=== PATIENT | female | born 1985 ===

== ENCOUNTER 2019-04-30 01:18 | Emergency (ER) | payer OTHER ==
[2019-04-30] MEDS ORDERED: 0.9 % SODIUM CHLORIDE 1,000 ML BAG IV ONE (01:40)
[2019-04-30] MEDS ORDERED: MORPHINE SULFATE 5 MG/ML VIAL IVP ONE (01:48)
[2019-04-30 02:25] LABS: URINE APPEARANCE CLEAR; URINE BILIRUBIN NEGATIVE (NEGATIVE); URINE BLOOD NEGATIVE (NEGATIVE); URINE COLOR YELLOW; URINE GLUCOSE (UA) NEGATIVE (NEGATIVE); URINE KETONE NEGATIVE (NEGATIVE); URINE LEUKOCYTE ESTERASE NEGATIVE (NEGATIVE); URINE NITRITE NEGATIVE (NEGATIVE); URINE PROTEIN NEGATIVE (NEGATIVE); URINE UROBILINOGEN 0.2 E.U./dL (0.20 - 1.00)
[2019-04-30 02:28] LABS: HCG,QUALITATIVE URINE NEGATIVE (NEGATIVE)
--- NOTE | 2019-04-30 02:49 | Emergency Department Record ---
History of Present Illness - General Chief Complaint: Syncope Stated Complaint: SYNCOPAL EPISODE Time Seen by Provider: 04/30/19 01:29 Source: Patient Mode of Arrival: Ambulatory Limitations: No limitations - History of Present Illness Initial Comments: pt was coughing very hard when she passed out and fell back hitting her head and r buttocks, r arm on the bed frame and fire place. she was out for a minute or 2. it was witnessed by her . Complaint: Loss of consciousness Onset/Timin -: Minutes(s) Prodromal Symptoms: Lightheaded Duration of Episode: 2 -: Minutes(s) Current Symptoms: Lightheaded Context: Recent illness Treatments Prior to Arrival: None - [place] Coma Scale Eye Response: (4) Open spontaneously Motor Response: (6) Obeys commands Verbal Response: (5) Oriented [place] Total: 15 - Related Data Home Medications Medication Instructions Recorded Confirmed Last Taken Benzonatate [Tessalon Perle] 1 tab PO DAILY PRN 04/30/19 04/30/19 04/30/19 Allergies Allergy/AdvReac Type Severity Reaction Status Date / Time No Known Drug Allergies Allergy Verified 04/30/19 01:32 Travel Screening - Travel/Exposure Within Last 30 Days Have you traveled within the last 30 days?: No - Travel/Exposure Within Last Year Have you traveled outside the [place] in the last year?: No - Additonal Travel Details Have you been exposed to anyone with a communicable illness?: No - Travel Symptoms Symptom Screening: None Review of Systems Reviewed: No additional complaints except as noted below Constitutional: Reports: As per HPI. Denies: Chills, Fever, Malaise, Night sweats, Weakness, Weight change Eyes: Reports: As per HPI. Denies: Eye discharge, Eye pain, Photophobia, Vision change ENT: Reports: As per HPI. Denies: Congestion, Dental pain, Ear pain, Epistaxis, Hearing loss, Throat pain Respiratory: Reports: As per HPI. Denies: Cough, Dyspnea, Hemoptysis, Stridor, Wheezes Cardiovascular: Reports: As per HPI. Denies: Arrhythmia, Chest pain, Dyspnea on exertion, Edema, Murmurs, Orthopnea, Palpitations, Paroxysmal nocturnal dyspnea, Rheumatic Fever, Syncope Endocrine: Reports: As per HPI. Denies: Fatigue, Heat or cold intolerance, Polydipsia, Polyuria Gastrointestinal: Reports: As per HPI. Denies: Abdominal pain, Constipation, Diarrhea, Hematemesis, Hematochezia, Melena, Nausea, Vomiting Genitourinary: Reports: As per HPI. Denies: Abnormal menses, Discharge, Dyspareunia, Dysuria, Frequency, Hematuria, Incontinence, Retention, Urgency Musculoskeletal: Reports: As per HPI. Denies: Arthralgia, Back pain, Gout, Joint swelling, Myalgia, Neck pain Skin: Reports: As per HPI. Denies: Bruising, Change in color, Change in hair/nails, Lesions, Pruritus, Rash Neurological: Reports: As per HPI. Denies: Abnormal gait, Confusion, Headache, Numbness, Paresthesias, Seizure, Tingling, Tremors, Vertigo, Weakness Psychiatric: Reports: As per HPI. Denies: Anxiety, Auditory hallucinations, Depression, Homicidal thoughts, Suicidal thoughts, Visual hallucinations Hematological/Lymphatic: Reports: As per HPI. Denies: Anemia, Blood Clots, Easy bleeding, Easy bruising, Swollen glands Past Medical History - SOCIAL HISTORY Smoking Status: Current every day smoker Alcohol Use: Occasional Drug Use: None - RESPIRATORY Hx Respiratory Disorders: Yes Hx Bronchitis: Yes - CARDIOVASCULAR Hx Cardio Disorders: No - NEURO Hx Neuro Disorders: No - GI Hx GI Disorders: No - Hx Genitourinary Disorders: Yes Hx UTI: Yes - ENDOCRINE Hx Endocrine Disorders: No - MUSCULOSKELETAL Hx Musculoskeletal Disorders: No - PSYCH Hx Psych Problems: No - HEMATOLOGY/ONCOLOGY Hx Hematology/Oncology Disorders: No Family Medical History Any Significant Family History?: No Physical Exam - General General Appearance: Alert, Oriented x3, Cooperative, Mild distress - Head Head exam: Normal inspection Head exam detail: General tenderness - Eye Eye exam: Normal appearance, PERRL, EOMI Pupils: Normal accommodation - ENT ENT exam: Normal exam, Mucous membranes moist, Normal external ear exam, Normal orophraynx, TM's normal bilaterally Ear exam: Normal external inspection. negative: External canal tenderness Nasal Exam: Normal inspection. negative: Discharge, Sinus tenderness Mouth exam: Normal external inspection, Tongue normal Teeth exam: Normal inspection. negative: Dental caries Throat exam: Normal inspection. negative: Tonsillar erythema, Tonsillar exudate - Neck Neck exam: Normal inspection, Full ROM. negative: Tenderness - Respiratory Respiratory exam: Normal lung sounds bilaterally. negative: Respiratory distress - Cardiovascular Cardiovascular Exam: Regular rate, Normal rhythm, Normal heart sounds - GI/Abdominal GI/Abdominal exam: Soft, Normal bowel sounds. negative: Tenderness - Rectal Rectal exam: Deferred - exam: Deferred - Extremities Extremities exam: Normal inspection, Full ROM, Normal capillary refill. negative: Tenderness - Back Back exam: Reports: Full ROM, Tenderness. 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 ] Respiratory 20 Rate Blood Pressure 149/106 Blood Pressure 129/77 [Right Arm] Pulse Ox 98 Medical Decision Making - Lab Data Result diagrams: 04/30/19 04:20 04/30/19 04:20 Lab Results 04/30/19 Range/Units 02:15 Urine Color Yellow Urine Appearance Clear Urine pH 6.0 (5.0-8.0) Ur Specific [place] 1.025 (1.002-1.030) Urine Protein Negative (NEGATIVE) Urine Glucose (UA) Negative (NEGATIVE) Urine Ketones Negative (NEGATIVE) Urine Blood Negative (NEGATIVE) Urine Nitrite Negative (NEGATIVE) Urine Bilirubin Negative (NEGATIVE) Urine Urobilinogen 0.2 (0.20 - 1.00) E.U./dL Ur Leukocyte Esterase Negative (NEGATIVE) Urine HCG, Qual Negative (NEGATIVE) Disposition Disposition: Discharge Clinical Impression: Multiple contusions Syncope Qualifiers: Syncope type: vasovagal syncope Qualified Code(s): R55 - Syncope and collapse Head injury Qualifiers: Encounter type: initial encounter Qualified Code(s): S09.90XA - Unspecified injury of head, initial encounter Disposition: Home, Self-Care Condition: (1) Good Instructions: Syncope (ED), Head Injury (ED), Contusion in Adults (ED) Additional Instructions: follow up with family doctor on thursday. have haltor monitor and echo of heart. sit down if coughing Forms: Patient Portal Access Quality - Quality Measures Quality Measures: Blunt Head Trauma (>2yr) - Sina Coma Scale [place] Coma Scale: [place] Coma Scale Eye Response: (4) Open spontaneously Motor Response: (6) Obeys commands Verbal Response: (5) Oriented [place] Total: 15 - Blunt Head Trauma - Adult Quality Measure: Measure #415: Utilization of CT for Minor Blunt Head Trauma ICD10 Codes Entered: Yes Was CT ordered: Yes Does Patient Have Any of the Following: No Exclusions Patient Presented Within 24 Hours of Injury: Yes Sina Score: [address] for Minor Blunt Head Trauma: < CT Done, Appropriate Indication > [G9529] Additional Inclusion Criteria: Within 24hrs (AND) GCS of 15 (AND) CT ordered. [G9530] Indications For CT: Dangerous Mechanism of Injury, Headache w/Loss of Consciousness - Blood Pressure Screening Does Patient Have Any of the Following: No Blood Pressure Classification: Hypertensive Reading Systolic Measurement: 149 Diastolic Measurement: 106 Screening for High Blood Pressure: < First Hypertensive BP, F/U Documented > [G8950] First Hypertensive Follow-up Interventions: Follow-up with rescreen GT 1 day and LT 4 weeks.
--- NOTE | 2019-04-30 03:30 | RADIOLOGY REPORT ---
EXAMINATION: Pelvis, One or Two Views EXAM DATE: 04/30/2019 3:26 AM TECHNIQUE: AP INDICATION: injury COMPARISON: None ENCOUNTER: Initial FINDINGS: There is no bone or joint abnormality. IMPRESSION: Normal exam. Dictated by: Yudy Norman MD on 04/30/2019 3:27 AM. .
--- NOTE | 2019-04-30 03:32 | RADIOLOGY REPORT ---
EXAMINATION: Thoracic Spine, Two Views EXAM DATE: 04/30/2019 3:26 AM TECHNIQUE: AP and lateral INDICATION: injury COMPARISON: None ENCOUNTER: Initial FINDINGS: No compression deformity or malalignment. Disc spaces are maintained. IMPRESSION: Normal exam. Dictated by: Yudy Norman MD on 04/30/2019 3:28 AM. .
--- NOTE | 2019-04-30 03:32 | CT SCAN REPORT ---
EXAMINATION: CT Head without IV Contrast EXAM DATE: 04/30/2019 3:26 AM TECHNIQUE: Standard protocol CT images of the head were obtained without intravenous contrast. Jaramillo l and sagittal reconstructed images were created. INDICATION: injury COMPARISON: None HAND DOMINANCE: Unknown. ENCOUNTER: Not applicable FINDINGS: 1. There is no intracranial mass, midline shift, extraaxial fluid collection or hemorrhage. 2. The ventricles, sulci and cisterns are normal. 3. There are no suspicious area of altered attenuation. 4. There is no fracture. 5. The visualized aspects of the orbits, paranasal sinuses, and mastoid air cells are normal. IMPRESSION: No acute intracranial abnormalities appreciated Dictated by: Polly Byrne DO on 04/30/2019 3:30 AM. .
--- NOTE | 2019-04-30 03:33 | CT SCAN REPORT ---
EXAMINATION: CT Cervical Spine without IV Contrast EXAM DATE: 04/30/2019 3:26 AM TECHNIQUE: Standard protocol cervical spine CT imaging was performed without intravenous contrast. Co rosana and sagittal images were reconstructed. INDICATION: injury COMPARISON: None ENCOUNTER: Not applicable FINDINGS: There is normal cervical alignment, curvature, vertebral body height, and disc height. Paraspinal soft tissues are unremarkable. There are no significant degenerative changes, disc herniations, central canal stenosis, or foraminal narrowing. Craniocervical junction:Unremarkable. C1-2: Unremarkable. C2-3: Unremarkable. C3-4: Unremarkable. C4-5: Unremarkable. C5-6: Unremarkable. C6-7: Unremarkable. C7-T1: Unremarkable. IMPRESSION: Negative for fracture subluxation or perched facet Dictated by: Polly Byrne DO on 04/30/2019 3:30 AM. .
[2019-04-30 04:38] LABS: BLOOD UREA NITROGEN 13 mg/dL (6-20); CREATININE 0.6 mg/dL (0.5-0.9); EST GLOMERULAR FILTRATION RATE > 60 mL/min
[2019-04-30 04:40] LABS: ABSOLUTE NEUTROPHIL COUNT 5.91; GLUCOSE,RANDOM 114 mg/dL (74-109); HEMATOCRIT 37.1 % (35.0-47.0); HEMOGLOBIN 11.7 gm/dl (11.6-16.0); MEAN CELL VOLUME 85.7 fl (81-97); MEAN CORPUSCULAR HGB CONC 31.5 g/dl (32-36); RED BLOOD COUNT 4.33 M/uL (3.80-5.40); WHITE BLOOD COUNT W/O DIFF 9.8 K/uL (4.2-12.2)
[2019-04-30 04:41] LABS: BASO % 0.3 % (0-6); EOS % 2.3 % (0-6); GRAN % 60.1 % (47-80); MEAN PLATELET VOLUME 8.8 fl (7.4-10.4); MONO % 6.3 % (0-9); PLATELET COUNT 481 K/uL (130-400); RED CELL DISTRIBUTION WIDTH 13.8 % (11.5-14.5)
== END 2019-04-30 05:26 | disposition home or self-care (01) ==
LOC: ER 01:18
DX: S09.90XA Unspecified injury of head, initial encounter (principal); S00.83XA Contusion of other part of head, initial encounter; S30.0XXA Contusion of lower back and pelvis, initial encounter; R55 Syncope and collapse; W01.198A Fall on same level from slipping, tripping and stumbling with subsequent striking against other object, initial encounter; F17.210 Nicotine dependence, cigarettes, uncomplicated
CPT/HCPCS: 70450; 72072; 72125; 72170; 80048; 81003; 81025; 85025; 85379; 93005; 93010; 99284; J7030

== ENCOUNTER 2019-05-30 13:57 | Observation (INO) | payer OTHER ==
[2019-05-30] MEDS ORDERED: ALBUTEROL SULFATE (0.083%) 2.5 MG/3 ML NEB INH ONE ×2 (14:23→15:44)
[2019-05-30] MEDS ORDERED: METHYLPREDNISOLONE PF 125MG/VIAL IVP ONE (14:23)
[2019-05-30] MEDS ORDERED: IPRATROPIUM BR 0.02% NEB (0.5MG) INH ONE (14:23)
[2019-05-30] MEDS ORDERED: IBUPROFEN 600 MG TABLET PO ONE (14:25)
[2019-05-30 14:35] LABS: INFLUENZA A NEGATIVE (NEGATIVE); INFLUENZA B NEGATIVE (NEGATIVE)
--- NOTE | 2019-05-30 14:36 | Emergency Department Record ---
History of Present Illness - General Chief Complaint: Fever Stated Complaint: ZOE,FEVER ,ACHES Time Seen by Provider: 05/30/19 14:22 Source: Patient, Family () Mode of Arrival: Ambulatory Limitations: No limitations - History of Present Illness Initial Comments: Pt with ZOE onset last PM. Fevers at home of 103. Pt with exposure to family with "the flu". Pt is a smoker with hx of hospital admission in the past for respiratory illness with wheeze. There is no hx of asthma. Cough is non productive, + body aches, no vomiting. Denies but is "trying to get ". Last took Motrin 600mg at 7AM. "Allergic to Tylenol as it causes stomach upset". No rash. Onset/Timin -: Days(s) Treatments Prior to Arrival: Ibuprofen - Related Data Home Medications Medication Instructions Recorded Confirmed Last Taken Albuterol Sulfate [Proair Hfa] 1 - 2 puff IH .EVERY 4-6 HOURS PRN 05/30/19 05/30/19 05/30/19 Allergies Allergy/AdvReac Type Severity Reaction Status Date / Time acetaminophen AdvReac VOMITING Verified 05/30/19 14:10 Travel Screening - Travel/Exposure Within Last 30 Days Have you traveled within the last 30 days?: No Review of Systems Constitutional: Reports: Chills, Fever, Malaise Eyes: Denies: Eye pain, Photophobia ENT: Reports: Congestion. Denies: Dental pain, Throat pain Respiratory: Reports: As per HPI, Cough, Dyspnea, Wheezes. Denies: Hemoptysis Cardiovascular: Denies: Arrhythmia, Chest pain, Syncope Endocrine: Reports: Fatigue. Denies: Polyuria Gastrointestinal: Denies: Abdominal pain, Diarrhea, Nausea, Vomiting Genitourinary: Denies: Abnormal menses Musculoskeletal: Denies: Arthralgia Skin: Denies: Bruising, Rash Neurological: Denies: Confusion, Tingling Psychiatric: Denies: Anxiety Hematological/Lymphatic: Denies: Anemia Past Medical History - SOCIAL HISTORY Smoking Status: Current every day smoker Alcohol Use: None Drug Use: None - RESPIRATORY Hx Respiratory Disorders: Yes Hx Asthma: Yes Hx Bronchitis: Yes - CARDIOVASCULAR Hx Cardio Disorders: No - NEURO Hx Neuro Disorders: No - GI Hx GI Disorders: No - Hx Genitourinary Disorders: Yes Hx UTI: Yes - ENDOCRINE Hx Endocrine Disorders: No - MUSCULOSKELETAL Hx Musculoskeletal Disorders: No - PSYCH Hx Psych Problems: No - HEMATOLOGY/ONCOLOGY Hx Hematology/Oncology Disorders: No Family Medical History Any Significant Family History?: No Physical Exam - General General Appearance: Alert, Oriented x3, Cooperative, Moderate distress - Head Head exam: Atraumatic, Normocephalic - Eye Eye exam: Normal appearance, PERRL - ENT ENT exam: Mucous membranes moist Ear exam: Normal external inspection Nasal Exam: Normal inspection Mouth exam: Normal external inspection Teeth exam: Normal inspection Throat exam: Normal inspection - Neck Neck exam: Normal inspection, Full ROM. negative: Lymphadenopathy, Tenderness - Respiratory Respiratory exam: Decreased breath sounds, Prolonged expiratory, Rhonchi, W heezes. negative: Chest wall tenderness - Cardiovascular Cardiovascular Exam: Regular rate, Normal rhythm Peripheral Pulses: 2+: Radial (R), Radial (L) - GI/Abdominal GI/Abdominal exam: Soft, Normal bowel sounds. negative: Distended, Tenderness - Rectal Rectal exam: Deferred - exam: Deferred - Extremities Extremities exam: Normal inspection. negative: Pedal edema, Tenderness - Back Back exam: Reports: Normal inspection - Neurological Neurological exam: Alert, Normal gait, Oriented X3 - Psychiatric Psychiatric exam: Normal affect, Normal mood - Skin Skin exam: Normal color. negative: Rash Course Vital Signs 05/30/19 14:06 Temperature 102.8 F H Pulse Rate 124 H Respiratory 22 Rate Blood Pressure 148/82 Pulse Ox 93 L - Reevaluation(s) Reevaluation #1: 05/30/19 14:35 Seen with in room. Labs, Xray, resp tx, and motrin ordered. Flu swabs Reevaluation #2: 05/30/19 15:45 CXR no infiltrate. Pt with fever and cough with wheezing. Flu swabs neg. BC and sputum cultures ordered. Improved exchange with resp tx. IV steroids given. Plan is for Rocephin and Zithro IV and admission for PO 89-91% on room air. Improves with O2. Pt and agree. Lorie RISK INTERN aware. Medical Decision Making - Lab Data Result diagrams: 05/30/19 14:40 05/30/19 14:40 Disposition Disposition: Admit Clinical Impression: Hypoxia, Tobacco abuse Acute bronchitis Qualifiers: Bronchitis organism: unspecified organism Qualified Code(s): J20.9 - Acute bronchitis, unspecified Reactive airway disease Qualifiers: Asthma severity: severe Asthma persistence: persistent Fever Qualifiers: Encounter type: initial encounter Disposition: Still a Patient at [facility] Decision to Admit: Admit from ER Decision to Admit Date: 05/30/19 Decision to Admit Time: 15:49 Accepting Physician: David Time Discussed w/Accepting Physician: 15:49 Condition: (3) Guarded Time of Disposition: 15:49 Quality - Quality Measures Quality Measures: N/A, Adult Bronchitis (18-64yr) - Adult Bronchitis Quality Measure: Measure #116: Avoidance of ABX w/Adult Bronchitis ICD10 Codes Entered: Yes Is patient being admitted: Yes Avoidance of ABX w/Bronchitis: Medical Reason for prescribing ABX [G9712] Medical Reason For Rx: Pneumonia - Blood Pressure Screening Does Patient Have Any of the Following: No Blood Pressure Classification: Pre-Hypertensive BP Reading Systolic Measurement: 148 Diastolic Measurement: 82 Screening for High Blood Pressure: < Pre-Hypertensive BP, F/U Documented > [G8950] Pre-Hypertensive Follow-up Interventions: Follow-up with rescreen every year.
[2019-05-30 14:56] LABS: ABSOLUTE NEUTROPHIL COUNT 6.17; HEMATOCRIT 39.9 % (35.0-47.0); HEMOGLOBIN 12.6 gm/dl (11.6-16.0); MEAN CELL VOLUME 83.3 fl (81-97); MEAN CORPUSCULAR HEMOGLOBIN 26.3 pg (27-33); MEAN CORPUSCULAR HGB CONC 31.6 g/dl (32-36); MEAN PLATELET VOLUME 9.2 fl (7.4-10.4); PLATELET COUNT 358 K/uL (130-400); RED BLOOD COUNT 4.79 M/uL (3.80-5.40); WHITE BLOOD COUNT W/O DIFF 7.4 K/uL (4.2-12.2)
[2019-05-30 15:06] LABS: BLOOD UREA NITROGEN 11 mg/dL (6-20); CREATININE 0.6 mg/dL (0.5-0.9); EST GLOMERULAR FILTRATION RATE > 60 mL/min
[2019-05-30 15:09] LABS: GLUCOSE,RANDOM 110 mg/dL (74-109)
[2019-05-30] MEDS ORDERED: CEFTRIAXONE SODIUM 1 GM in 0.9 % SODIUM CHLORIDE 100ML 100 ML IVPB ONE (15:44)
[2019-05-30] MEDS ORDERED: AZITHROMYCIN 500 MG in 0.9 % SODIUM CHLORIDE 250ML 250 ML IVPB ONE (15:45)
--- NOTE | 2019-05-30 15:48 | RADIOLOGY REPORT ---
EXAMINATION: Two View Chest Radiographs EXAM DATE: 05/30/2019 3:26 PM TECHNIQUE: Frontal and lateral views INDICATION: cough - fever- wheeze COMPARISON: None ENCOUNTER: Not applicable FINDINGS: The heart, mediastinum, and pulmonary vasculature are normal. No lung consolidation or pleural effu sions are present. IMPRESSION: Negative for active intrathoracic disease Dictated by: Eduardo Dinh MD on 05/30/2019 3:46 PM. .
[2019-05-30] MEDS ORDERED: 0.9 % SODIUM CHLORIDE 1000ML 1,000 ML IV ONE (16:47)
[2019-05-30] MEDS ORDERED: ACETAMINOPHEN 500 MG TABLET PO PRN (16:47)
[2019-05-30] MEDS ORDERED: ACETAMINOPHEN 325 MG TAB PO PRN (16:47)
[2019-05-30] MEDS ORDERED: FLU VAC QS 2019-20 (INPT, 6MO+) 60MCG/0.5ML IM ONE (17:13)
[2019-05-30] MEDS: METHYLPREDNISOLONE PF 125MG/VIAL IVP SCH (17:21)
[2019-05-30 18:12] LABS: URINE APPEARANCE CLEAR; URINE BILIRUBIN NEGATIVE (NEGATIVE); URINE COLOR YELLOW; URINE GLUCOSE (UA) NEGATIVE (NEGATIVE); URINE KETONE NEGATIVE (NEGATIVE)
[2019-05-30 18:13] LABS: URINE BLOOD NEGATIVE (NEGATIVE); URINE LEUKOCYTE ESTERASE NEGATIVE (NEGATIVE); URINE NITRITE NEGATIVE (NEGATIVE); URINE PROTEIN NEGATIVE (NEGATIVE); URINE UROBILINOGEN 0.2 E.U./dL (0.20 - 1.00)
[2019-05-30] MEDS: ALBUTEROL SULFATE (0.083%) 2.5 MG/3 ML NEB INH PRN (19:24)
--- NOTE | 2019-05-30 22:13 | History & Physical ---
History of Present Illness - Date of Service Date of Service for History & Physical: 05/30/19 - History of Present Illness Admitting Diagnosis: Acute bronchitis with fever and hypoxia History of Present Illness: 05/30/19: Patient presented to ER for fever, cough, body aches x 1-2 days. Patient 89% RA upon arrival to ER. Patient denies home O2. Patient is a current every day smoker, reporting 1 PPD. Not currently , but trying to get . PCP: Dr Lepe ED Course: Vital Signs Temp Pulse Pulse Resp BP BP Pulse Ox 05/30/19 21:03 98.6 F 103 H 20 112/54 97 05/30/19 19:26 106 H 18 94 L 05/30/19 16:47 100.3 F H 111 H 24 123/77 95 05/30/19 16:28 100.5 F H 113 H 95 05/30/19 16:26 113 H 18 99 05/30/19 15:28 100.9 F H 117 H 22 92 L 05/30/19 15:27 92 L 05/30/19 14:56 118 H 18 97 05/30/19 14:06 102.8 F H 124 H 22 148/82 93 L Intake & Output 05/28/19 05/29/19 05/30/19 05/31/19 06:59 06:59 06:59 06:59 Intake Total 350 Output Total 0 Balance 350 Weight 289 lb 4.8 oz Intake: IV 350 Output: Emesis 0 Other: Weight Measurement Method Standing Scale Laboratory 05/30/19 05/30/19 05/30/19 18:05 15:43 14:40 WBC RBC Hgb Hct MCV MCH MCHC RDW Plt Count MPV Neutrophils % Eosinophils % Basophils % Absolute Neutrophils Lymphocytes Monocytes Sodium Potassium Chloride Carbon Dioxide Anion Gap BUN Creatinine Estimated GFR Random Glucose Calcium Serum HCG, Qual Negative Urine Color Yellow Urine Appearance Clear Urine pH 6.5 Ur Specific [place] 1.010 Urine Protein Negative Urine Glucose (UA) Negative Urine Ketones Negative Urine Blood Negative Urine Nitrite Negative Urine Bilirubin Negative Urine Urobilinogen 0.2 Ur Leukocyte Esterase Negative Gram Stain Cancelled Influenza Type A Ag Influenza Type B Ag Aerobic Organism Source Cancelled 05/30/19 05/30/19 05/30/19 14:40 14:40 14:15 WBC 7.4 RBC 4.79 Hgb 12.6 Hct 39.9 MCV 83.3 MCH 26.3 L MCHC 31.6 L RDW 14.0 Plt Count 358 MPV 9.2 Neutrophils % 85.0 H Eosinophils % Not Reportable Basophils % Not Reportable Absolute Neutrophils 6.17 Lymphocytes 6.0 L Monocytes 9.0 Sodium 136 Potassium 4.1 Chloride 96 L Carbon Dioxide 25.0 Anion Gap 15.0 BUN 11 Creatinine 0.6 Estimated GFR > 60 Random Glucose 110 H Calcium 9.1 Serum HCG, Qual Urine Color Urine Appearance Urine pH Ur Specific [place] Urine Protein Urine Glucose (UA) Urine Ketones Urine Blood Urine Nitrite Urine Bilirubin Urine Urobilinogen Ur Leukocyte Esterase Gram Stain Influenza Type A Ag Negative Influenza Type B Ag Negative Aerobic Organism Source Past Surgical History Date/Surgery ovary cyst removed. tubal . Past Medical History Hx Respiratory Disorders Yes Hx Asthma Yes Hx Bronchitis Yes Hx Cardiovascular Disorders No Hx Neurological Disorders No Hx Gastrointestinal Disorders No Hx Genitourinary Disorders Yes Hx Urinary Tract Infection Yes Hx Endocrine Disorders No Hx Musculoskeletal Disorders No Hx Psychiatric Problems No Hx Hematology/Oncology Disorders No Hx Influenza Vaccination No Social History Alcohol None Drug Use None Smoking Status Smoking Status Current every day smoker Cigarette(s) use/used per day 1 pack a day Family Medical History Any Significant Family Hx? No Skin Risk Assessment Scale Sensory Perception No Impairment Moisture Risk Rarely Moist Activity Risk Walks Occasionally Mobility Risk No Limitations Nutrition Risk Probably Inadequate Friction & Shear Risk No Apparent Problem Skin Risk Total Score (points) 20 Skin Risk Evaluation No Risk Wound Present on Admission Wound present upon admission? No Medications Acetaminophen (Tylenol 500mg Tab) 1,000 mg PO Q6H PRN PRN Reason: PAIN - MILD(1-4)/FEVER Acetaminophen (Tylenol 325mg) 650 mg PO Q4H PRN PRN Reason: PAIN - MILD(1-4)/FEVER Albuterol Sulfate (Albuterol Sulfate) 2.5 mg INH RESP.Q4H PRN PRN Reason: DIFFICULTY IN BREATHING Sodium Chloride () 1,000 mls @ 100 mls/hr IV .Q10H ONE Ceftriaxone Sodium 1 gm/ (Sodium Chloride) 100 mls @ 100 mls/hr IVPB Q24H [facility] Methylprednisolone Sodium Succinate (Solu-Medrol) 60 mg IVP Q8H [facility] Azithromycin 500 mg/ Sodium (Chloride) 250 mls @ 250 mls/hr IVPB NOW ONE Ibuprofen (Motrin 600mg) 800 mg PO NOW ONE Ipratropium [place] (Atrovent 0.02% Neb) 2.5 ml INH NOW ONE Methylprednisolone Sodium Succinate (Solu-Medrol) 125 mg IVP NOW ONE Problems Acute bronchitis (Acute) J20.9 Fever (Acute) R50.9 Hypoxia (Acute) R09.02 Reactive airway disease (Acute) J45.909 Tobacco abuse (Acute) Z72.0 05/30/19 1930: Patient sitting at EOB with at bedside. A&Ox4. Patient reports getting respiratory infections easily including bronchitis x 6 months. Recent exposure to influenza, fevers, body aches, cough, SOB x 1-2 days. LS congested with wheezing throughout. Patient Denies CP, edema, ALAS, or other symptoms. Patient independent with ambulation. No nursing concerns noted. CXR negative for acute process. Admitted for IV steroids, breathing treatments and antibiotics. POC discussed and all questions answered. Travel Screening - Travel/Exposure Within Last 30 Days Have you traveled within the last 30 days?: No - Travel/Exposure Within Last Year Have you traveled outside the [place] in the last year?: No - Additonal Travel Details Have you been exposed to anyone with a communicable illness?: No Exposure Details:: nephew influenza b, shirley influenza a - Travel Symptoms Symptom Screening: None Review of Systems Constitutional: Reports: Chills, Fever, Malaise Eyes: Denies: Eye pain, Photophobia ENT: Reports: Congestion. Denies: Dental pain, Throat pain Respiratory: Reports: As per HPI, Cough, Dyspnea, Wheezes. Denies: Hemoptysis Cardiovascular: Denies: Arrhythmia, Chest pain, Syncope Endocrine: Reports: Fatigue. Denies: Polyuria Gastrointestinal: Denies: Abdominal pain, Diarrhea, Nausea, Vomiting Genitourinary: Denies: Abnormal menses Musculoskeletal: Denies: Arthralgia Skin: Denies: Bruising, Rash Neurological: Denies: Confusion, Tingling Psychiatric: Denies: Anxiety Hematological/Lymphatic: Denies: Anemia Past Medical History - SOCIAL HISTORY Smoking Status: Current every day smoker Alcohol Use: None Drug Use: None - RESPIRATORY Hx Respiratory Disorders: Yes Hx Asthma: Yes Hx Bronchitis: Yes - CARDIOVASCULAR Hx Cardio Disorders: No - NEURO Hx Neuro Disorders: No - GI Hx GI Disorders: No - Hx Genitourinary Disorders: Yes Hx UTI: Yes - ENDOCRINE Hx Endocrine Disorders: No - MUSCULOSKELETAL Hx Musculoskeletal Disorders: No - PSYCH Hx Psych Problems: No - HEMATOLOGY/ONCOLOGY Hx Hematology/Oncology Disorders: No Family Medical History Any Significant Family History?: No H&P Meds/Allergies - Allergies Allergies: Allergies Allergy/AdvReac Type Severity Reaction Status Date / Time acetaminophen AdvReac VOMITING Verified 05/30/19 14:10 - Home Medications Home Medications Medication Instructions Recorded Confirmed Last Taken Albuterol Sulfate [Proair Hfa] 1 - 2 puff IH .EVERY 4-6 HOURS PRN 05/30/19 05/30/19 05/30/19 - Active Medications Active Medications: Current Medications Acetaminophen (Tylenol 500mg Tab) 1,000 mg PO Q6H PRN PRN Reason: PAIN - MILD(1-4)/FEVER Acetaminophen (Tylenol 325mg) 650 mg PO Q4H PRN PRN Reason: PAIN - MILD(1-4)/FEVER Albuterol Sulfate (Albuterol Sulfate) 2.5 mg INH RESP.Q4H PRN PRN Reason: DIFFICULTY IN BREATHING Last Admin: 05/30/19 19:24 Dose: 2.5 mg Documented by: Azithromycin (Zithromax) 500 mg PO DAILY [facility] Sodium Chloride () 1,000 mls @ 100 mls/hr IV .Q10H ONE Stop: 05/31/19 02:46 Last Admin: 05/30/19 17:36 Dose: 100 mls/hr Documented by: Ceftriaxone Sodium 1 gm/ (Sodium Chloride) 100 mls @ 100 mls/hr IVPB Q24H [facility] Stop: 06/05/19 17:01 Last Infusion: 05/30/19 19:08 Dose: Infused Documented by: Methylprednisolone Sodium Succinate (Solu-Medrol) 60 mg IVP Q8H [facility] Last Admin: 05/30/19 17:21 Dose: Not Given Documented by: Physical Exam - Vital Signs Vital Signs: Vital Signs - Last 24 Hrs Temp Pulse Pulse Resp BP BP Pulse Ox 05/30/19 21:03 98.6 F 103 H 20 112/54 97 05/30/19 19:26 106 H 18 94 L 05/30/19 16:47 100.3 F H 111 H 24 123/77 95 05/30/19 16:28 100.5 F H 113 H 95 05/30/19 16:26 113 H 18 99 05/30/19 15:28 100.9 F H 117 H 22 92 L 05/30/19 15:27 92 L 05/30/19 14:56 118 H 18 97 05/30/19 14:06 102.8 F H 124 H 22 148/82 93 L - General General Appearance: Alert, Oriented x3, Cooperative, No acute distress Limitations: No limitations - Head Head exam: Atraumatic, Normocephalic, Normal inspection - Neck Neck exam: Normal inspection, Full ROM. negative: Tenderness - Respiratory Respiratory exam: Decreased breath sounds, Prolonged expiratory, Wheezes. negative: Chest wall tenderness - Cardiovascular Cardiovascular Exam: Regular rate, Normal rhythm, Normal heart sounds Peripheral Pulses: 2+: Radial (R), Radial (L) - GI/Abdominal GI/Abdominal exam: Soft. negative: Tenderness - Rectal Rectal exam: Deferred - exam: Deferred - Extremities Extremities exam: Normal inspection, Normal capillary refill. negative: Pedal edema - Back Back exam: Reports: Normal inspection, Full ROM. Denies: CVA tenderness (R), CVA tenderness (L) - Neurological Neurological exam: Alert, Normal gait, Oriented X3 - Psychiatric Psychiatric exam: Normal affect, Normal mood - Skin Skin exam: Dry, Intact, Normal color. negative: Rash Results - Labs Result Diagrams: 05/30/19 14:40 05/30/19 14:40 Labs Last 24 Hours: Laboratory Results - last 24 hr 05/30/19 05/30/19 05/30/19 14:15 14:40 14:40 WBC 7.4 RBC 4.79 Hgb 12.6 Hct 39.9 MCV 83.3 MCH 26.3 L MCHC 31.6 L RDW 14.0 Plt Count 358 MPV 9.2 Neutrophils % 85.0 H Eosinophils % Not Reportable Basophils % Not Reportable Absolute Neutrophils 6.17 Lymphocytes 6.0 L Monocytes 9.0 Sodium 136 Potassium 4.1 Chloride 96 L Carbon Dioxide 25.0 Anion Gap 15.0 BUN 11 Creatinine 0.6 Estimated GFR > 60 Random Glucose 110 H Calcium 9.1 Serum HCG, Qual Urine Color Urine Appearance Urine pH Ur Specific [place] Urine Protein Urine Glucose (UA) Urine Ketones Urine Blood Urine Nitrite Urine Bilirubin Urine Urobilinogen Ur Leukocyte Esterase Gram Stain Influenza Type A Ag Negative Influenza Type B Ag Negative Aerobic Organism Source 05/30/19 05/30/19 05/30/19 14:40 15:43 18:05 WBC RBC Hgb Hct MCV MCH MCHC RDW Plt Count MPV Neutrophils % Eosinophils % Basophils % Absolute Neutrophils Lymphocytes Monocytes Sodium Potassium Chloride Carbon Dioxide Anion Gap BUN Creatinine Estimated GFR Random Glucose Calcium Serum HCG, Qual Negative Urine Color Yellow Urine Appearance Clear Urine pH 6.5 Ur Specific [place] 1.010 Urine Protein Negative Urine Glucose (UA) Negative Urine Ketones Negative Urine Blood Negative Urine Nitrite Negative Urine Bilirubin Negative Urine Urobilinogen 0.2 Ur Leukocyte Esterase Negative Gram Stain Cancelled Influenza Type A Ag Influenza Type B Ag Aerobic Organism Source Cancelled - Imaging and Cardiology Chest x-ray Status: Report reviewed (Negative for acute process) VTE H&P Assessment - Risk for VTE Risk for VTE: Yes Risk Level: Moderate Risk Assessment Date: 05/30/19 Risk Assessment Time: 22:19 VTE Orders Placed or Will Be Placed: Yes Plan - Inpatient Certification Inpatient Certification: Admit to inpatient care: Based on my medical assessment, after consideration of patient's risk factors (age, co-morbidities and patient presenting symptoms and acuity), I expect that this patient will remain in the hospital greater than or equal to two midnights and that the services needed warrant inpatient care because: Patient Risk Factors: [] Estimated length of stay: [] The patient may reasonably be expected to be discharged or transferred to a hospital within 96 hours after admission to [facility]. Services needed: [] Post hospital care (if known): [] I certify that my determination is in accordance with my understanding of Medicare requirements for reasonable and necessary inpatient services. - Detailed Diagnosis and Plan (1) Reactive airway disease Current Visit: Yes Status: Acute Qualifiers: Asthma severity: severe Asthma persistence: persistent Base Code: J45.909 - UNSPECIFIED ASTHMA, UNCOMPLICATED Comment: 05/30/19: -Pt with wheezing, SOB, cough, fever x 1-2 days [employer] -WBC WNL, Neutrophils 85.0, Lymphocytes 6.0, CMP unremarkable, Flu negative -BC and sputum culture pending -Treating with IV Rocephin 1gm Q24H, Zithromax change to 500mg PO Daily, IV Solumedrol, PRN Albuterol Neb Tx -Temp 102.8, Acetaminophen PO/Ofirmev IV PRN ordered -89% RA upon arrival to ER, running mid 90's on RA tonight -Current every day smoker 1 PPD -CXR negative for acute process -LS congested with wheezing throughout (2) Hypoxia Current Visit: Yes Status: Acute Base Code: R09.02 - HYPOXEMIA Comment: 05/30/19: -89% RA upon arrival to ER, running mid 90's 2L and subsequently 97% on RA tonight. No home O2. -Current every day smoker 1 PPD -WBC WNL, Neutrophils 85.0, Lymphocytes 6.0, CMP unremarkable, Flu negative -BC and sputum culture pending -CXR negative for acute process, LS congested with wheezing throughout -Treating for bacterial infection d/t severity of symptoms with IV Rocephin 1gm Q24H, Zithromax change to 500mg PO Daily, IV Solumedrol, PRN Albuterol Neb Tx (3) Fever Current Visit: Yes Status: Acute Qualifiers: Encounter type: initial encounter Base Code: R50.9 - FEVER, UNSPECIFIED Comment: 05/30/19: -Subjective fevers at home -Temp 102.8 ER -PO/IV Acetaminophen ordered PRN fever -Treating bacterial infection despite negative CXR d/t severity of symptoms (4) DVT prophylaxis Current Visit: Yes Status: Acute Base Code: Z29.9 - ENCOUNTER FOR PROPHYLACTIC MEASURES, UNSPECIFIED Comment: 05/30/19: -Nursing to encourage ambulation in room -Lovenox 40mg SQ Daily (5) Full code status Current Visit: Yes Status: Acute Base Code: Z78.9 - OTHER SPECIFIED HEALTH STATUS Comment: 05/30/19: -Full code status this admission
[2019-05-30] MEDS: ACETAMINOPHEN 1,000 MG/100 ML BTL IVPB SCH (22:31)
[2019-05-31] MEDS: METHYLPREDNISOLONE PF 125MG/VIAL IVP SCH ×2 (02:14→08:13)
[2019-05-31] MEDS ORDERED: IBUPROFEN 600 MG TABLET PO PRN (05:31)
[2019-05-31] MEDS: ACETAMINOPHEN 1,000 MG/100 ML BTL IVPB SCH ×2 (05:47→10:45)
[2019-05-31 06:43] LABS: HEMATOCRIT 37.6 % (35.0-47.0); MEAN CELL VOLUME 83.4 fl (81-97); MEAN CORPUSCULAR HEMOGLOBIN 26.6 pg (27-33); MEAN CORPUSCULAR HGB CONC 31.9 g/dl (32-36); MEAN PLATELET VOLUME 9.1 fl (7.4-10.4); PLATELET COUNT 392 K/uL (130-400); RED BLOOD COUNT 4.51 M/uL (3.80-5.40); WHITE BLOOD COUNT W/O DIFF 8.2 K/uL (4.2-12.2)
[2019-05-31 06:59] LABS: BLOOD UREA NITROGEN 11 mg/dL (6-20); CREATININE 0.6 mg/dL (0.5-0.9); EST GLOMERULAR FILTRATION RATE > 60 mL/min; GLUCOSE,RANDOM 253 mg/dL (74-109)
[2019-05-31 07:18] LABS: ABSOLUTE NEUTROPHIL COUNT 7.37
[2019-05-31 07:19] LABS: PLATELET ESTIMATE NORMAL (NORMAL)
[2019-05-31] MEDS: ALBUTEROL SULFATE (0.083%) 2.5 MG/3 ML NEB INH PRN ×2 (09:37→13:11)
[2019-05-31] MEDS ORDERED: AZITHROMYCIN 500 MG TABLET PO SCH (10:00)
[2019-05-31] MEDS ORDERED: ENOXAPARIN 40 MG/0.4 ML SYR SQ SCH (10:00)
--- NOTE | 2019-05-31 10:59 | Discharge Summary ---
Providers Discharge Summary Date: 05/31/19 Date of admission: 05/30/19 16:19 Attending physician: EDDIE STOVALL Primary care physician: PATY LEPE M.D. Physical Exam - Vital Signs Vital Signs: Vital Signs - Last 24 Hrs Temp Pulse Pulse Resp BP BP Pulse Ox 05/31/19 09:37 105 H 20 95 05/31/19 08:05 99.0 F 96 H 20 137/72 95 05/31/19 00:24 98.1 F 05/30/19 21:03 98.6 F 103 H 20 112/54 97 05/30/19 19:26 106 H 18 94 L 05/30/19 16:47 100.3 F H 111 H 24 123/77 95 05/30/19 16:28 100.5 F H 113 H 95 05/30/19 16:26 113 H 18 99 05/30/19 15:28 100.9 F H 117 H 22 92 L 05/30/19 15:27 92 L 05/30/19 14:56 118 H 18 97 05/30/19 14:06 102.8 F H 124 H 22 148/82 93 L - General General Appearance: Alert, Oriented x3, Cooperative, No acute distress Limitations: No limitations - Head Head exam: Atraumatic, Normocephalic, Normal inspection - Eye Eye exam: Normal appearance, PERRL - ENT ENT exam: Mucous membranes moist Ear exam: Normal external inspection Nasal Exam: Normal inspection Mouth exam: Normal external inspection Teeth exam: Normal inspection Throat exam: Normal inspection - Neck Neck exam: Normal inspection, Full ROM. negative: Tenderness - Respiratory Respiratory exam: Decreased breath sounds, Prolonged expiratory, Wheezes. negative: Chest wall tenderness - Cardiovascular Cardiovascular Exam: Regular rate, Normal rhythm, Normal heart sounds Peripheral Pulses: 2+: Radial (R), Radial (L) - GI/Abdominal GI/Abdominal exam: Soft. negative: Tenderness - Rectal Rectal exam: Deferred - exam: Deferred - Extremities Extremities exam: Normal inspection, Normal capillary refill. negative: Pedal edema - Back Back exam: Reports: Normal inspection, Full ROM. Denies: CVA tenderness (R), CVA tenderness (L) - Neurological Neurological exam: Alert, Normal gait, Oriented X3 - Psychiatric Psychiatric exam: Normal affect, Normal mood - Skin Skin exam: Dry, Intact, Normal color. negative: Rash Hospitalization - Hospitalization Admission Diagnosis: Acute bronchitis with fever and hypoxia - Problem List/Discharge Diagnosis (1) Fever Current Visit: Yes Status: Acute Discharge Diagnosis: Encounter type: initial encounter Base Code: R50.9 - FEVER, UNSPECIFIED Comment: 05/31/19: -Temp 102.8 ER ---> 99. -PO Acetaminophen 1000mg Q6H PRN fever -Treating bacterial infection despite negative CXR d/t severity of symptoms. Will continue abx with Zithromax and D/C Rocephin. (2) Reactive airway disease Current Visit: Yes Status: Acute Discharge Diagnosis: Asthma severity: severe Asthma persistence: persistent Base Code: J45.909 - UNSPECIFIED ASTHMA, UNCOMPLICATED Comment: 05/31/19: -WBC WNL, Neutrophils 85.0, Lymphocytes 6.0, CMP unremarkable, Flu negative -BC and sputum culture pending -Continue with Zithromax change to 500mg PO Daily, IV Solumedrol changeto Po Prednisone for the next 4 days. PRN Albuterol and Advair twice daily. -Current every day smoker 1 PPD -CXR negative for acute process (3) Hypoxia Current Visit: Yes Status: Acute Base Code: R09.02 - HYPOXEMIA Comment: 05/31/19: -89% RA upon arrival to ER, running mid 90's 2L and subsequently 97% on RA tonight. No home O2. Saturations > 95% on subsequent vitals. -Current every day smoker 1 PPD -WBC WNL, Neutrophils 85.0, Lymphocytes 6.0, CMP unremarkable, Flu negative - Preliminary BCX - no growth and sputum culture pending. Will follow up on both at discharge. -CXR negative for acute process on infiltrate. No wheezing on examinationthis morning. - Zithromax change to 500mg PO Daily, IV Solumedrol, PRN Albuterol Neb Tx (4) Tobacco abuse Current Visit: Yes Status: Acute Base Code: Z72.0 - TOBACCO USE Comment: 05/31/19: - 1 pack/ daily x 15 years. (5) DVT prophylaxis Current Visit: Yes Status: Acute Base Code: Z29.9 - ENCOUNTER FOR PROPHYLACTIC MEASURES, UNSPECIFIED Comment: 05/31/19: -Nursing to encourage ambulation in room -Lovenox 40mg SQ Daily (6) Full code status Current Visit: Yes Status: Acute Base Code: Z78.9 - OTHER SPECIFIED HEALTH STATUS Comment: 05/31/19: -Full code status this admission - Hospitalization Course Hospital Course: 05/30/19: Patient presented to ER for fever, cough, body aches x 1-2 days. Patient 89% RA upon arrival to ER. Patient denies home O2. Patient is a current every day smoker, reporting 1 PPD. Not currently , but trying to get . PCP: Dr Lepe ED Course: Vital Signs Temp Pulse Pulse Resp BP BP Pulse Ox 05/30/19 21:03 98.6 F 103 H 20 112/54 97 05/30/19 19:26 106 H 18 94 L 05/30/19 16:47 100.3 F H 111 H 24 123/77 95 05/30/19 16:28 100.5 F H 113 H 95 05/30/19 16:26 113 H 18 99 05/30/19 15:28 100.9 F H 117 H 22 92 L 05/30/19 15:27 92 L 05/30/19 14:56 118 H 18 97 05/30/19 14:06 102.8 F H 124 H 22 148/82 93 L Intake & Output 05/28/19 05/29/19 05/30/19 05/31/19 06:59 06:59 06:59 06:59 Intake Total 350 Output Total 0 Balance 350 Weight 289 lb 4.8 oz Intake: IV 350 Output: Emesis 0 Other: Weight Measurement Method Standing Scale Laboratory 05/30/19 05/30/19 05/30/19 18:05 15:43 14:40 WBC RBC Hgb Hct MCV MCH MCHC RDW Plt Count MPV Neutrophils % Eosinophils % Basophils % Absolute Neutrophils Lymphocytes Monocytes Sodium Potassium Chloride Carbon Dioxide Anion Gap BUN Creatinine Estimated GFR Random Glucose Calcium Serum HCG, Qual Negative Urine Color Yellow Urine Appearance Clear Urine pH 6.5 Ur Specific [place] 1.010 Urine Protein Negative Urine Glucose (UA) Negative Urine Ketones Negative Urine Blood Negative Urine Nitrite Negative Urine Bilirubin Negative Urine Urobilinogen 0.2 Ur Leukocyte Esterase Negative Gram Stain Cancelled Influenza Type A Ag Influenza Type B Ag Aerobic Organism Source Cancelled 05/30/19 05/30/19 05/30/19 14:40 14:40 14:15 WBC 7.4 RBC 4.79 Hgb 12.6 Hct 39.9 MCV 83.3 MCH 26.3 L MCHC 31.6 L RDW 14.0 Plt Count 358 MPV 9.2 Neutrophils % 85.0 H Eosinophils % Not Reportable Basophils % Not Reportable Absolute Neutrophils 6.17 Lymphocytes 6.0 L Monocytes 9.0 Sodium 136 Potassium 4.1 Chloride 96 L Carbon Dioxide 25.0 Anion Gap 15.0 BUN 11 Creatinine 0.6 Estimated GFR > 60 Random Glucose 110 H Calcium 9.1 Serum HCG, Qual Urine Color Urine Appearance Urine pH Ur Specific [place] Urine Protein Urine Glucose (UA) Urine Ketones Urine Blood Urine Nitrite Urine Bilirubin Urine Urobilinogen Ur Leukocyte Esterase Gram Stain Influenza Type A Ag Negative Influenza Type B Ag Negative Aerobic Organism Source Past Surgical History Date/Surgery ovary cyst removed. tubal . Past Medical History Hx Respiratory Disorders Yes Hx Asthma Yes Hx Bronchitis Yes Hx Cardiovascular Disorders No Hx Neurological Disorders No Hx Gastrointestinal Disorders No Hx Genitourinary Disorders Yes Hx Urinary Tract Infection Yes Hx Endocrine Disorders No Hx Musculoskeletal Disorders No Hx Psychiatric Problems No Hx Hematology/Oncology Disorders No Hx Influenza Vaccination No Social History Alcohol None Drug Use None Smoking Status Smoking Status Current every day smoker Cigarette(s) use/used per day 1 pack a day Family Medical History Any Significant Family Hx? No Skin Risk Assessment Scale Sensory Perception No Impairment Moisture Risk Rarely Moist Activity Risk Walks Occasionally Mobility Risk No Limitations Nutrition Risk Probably Inadequate Friction & Shear Risk No Apparent Problem Skin Risk Total Score (points) 20 Skin Risk Evaluation No Risk Wound Present on Admission Wound present upon admission? No Medications Acetaminophen (Tylenol 500mg Tab) 1,000 mg PO Q6H PRN PRN Reason: PAIN - MILD(1-4)/FEVER Acetaminophen (Tylenol 325mg) 650 mg PO Q4H PRN PRN Reason: PAIN - MILD(1-4)/FEVER Albuterol Sulfate (Albuterol Sulfate) 2.5 mg INH RESP.Q4H PRN PRN Reason: DIFFICULTY IN BREATHING Sodium Chloride () 1,000 mls @ 100 mls/hr IV .Q10H ONE Ceftriaxone Sodium 1 gm/ (Sodium Chloride) 100 mls @ 100 mls/hr IVPB Q24H KATRINA Methylprednisolone Sodium Succinate (Solu-Medrol) 60 mg IVP Q8H KATRINA Azithromycin 500 mg/ Sodium (Chloride) 250 mls @ 250 mls/hr IVPB NOW ONE Ibuprofen (Motrin 600mg) 800 mg PO NOW ONE Ipratropium [place] (Atrovent 0.02% Neb) 2.5 ml INH NOW ONE Methylprednisolone Sodium Succinate (Solu-Medrol) 125 mg IVP NOW ONE Problems Acute bronchitis (Acute) J20.9 Fever (Acute) R50.9 Hypoxia (Acute) R09.02 Reactive airway disease (Acute) J45.909 Tobacco abuse (Acute) Z72.0 05/30/19 1930: Patient sitting at EOB with at bedside. A&Ox4. Patient reports getting respiratory infections easily including bronchitis x 6 months. Recent exposure to influenza, fevers, body aches, cough, SOB x 1-2 days. LS congested with wheezing throughout. Patient Denies CP, edema, ALAS, or other symptoms. Patient independent with ambulation. No nursing concerns noted. CXR negative for acute process. Admitted for IV steroids, breathing treatments and antibiotics. POC discussed and all questions answered. 05/31/18: On examination this morning the patient does not appear to be in distress and is not on oxygen therapy. She states that she has had some wheezing but is feeling better. Vitals have been stable overnight and her repeat labs were all within normal limits. She states that she used to take Advair in addition to her Proair but says that she hasn't for some time due to insurance issues. Procedures: Imaging and X-Rays 05/30/19 14:23 CHEST 2 VIEWS [RAD] Stat Abnormal Labs: Abnormal Lab Results 05/30/19 05/30/19 05/31/19 Range/Units 14:40 14:40 06:32 MCH 26.3 L 26.6 L (27-33) pg MCHC 31.6 L 31.9 L (32-36) g/dl Neutrophils % 85.0 H 90.0 H (47-80) % Lymphocytes 6.0 L 9.0 L (16-45) % Chloride 96 L (98-107) mmol/L Carbon Dioxide (22-29) mmol/L Random Glucose 110 H (74-109) mg/dL 05/31/19 Range/Units 06:32 MCH (27-33) pg MCHC (32-36) g/dl Neutrophils % (47-80) % Lymphocytes (16-45) % Chloride (98-107) mmol/L Carbon Dioxide 21.0 L (22-29) mmol/L Random Glucose 253 H (74-109) mg/dL Condition at Discharge: (3) Guarded Discharge Medications - Discharge Medications Prescriptions: Fluticasone Propion/Salmeterol [Advair 100-50 Diskus] 1 each IH BID #2 blst.w.dev Prednisone [Prednisone 20Mg] 40 mg PO DAILY #8 tab Acetaminophen [Tylenol 500Mg Tab] 1,000 mg PO Q6H PRN #20 tablet PRN Reason: Pain - Mild(1-4)/Fever Azithromycin [Zithromax] 500 mg PO DAILY #5 tab Home Medications: Ambulatory Orders Cetirizine HCl/Pseudoephedrine [Zyrtec-D Tablet] 1 each PO DAILY tab 03/07/19 [Last Taken Unknown] Benzonatate [Tessalon [place]] 1 tab PO DAILY PRN 04/30/19 [Last Taken 04/30/19] Albuterol Sulfate [Proair Hfa] 1 - 2 puff IH .EVERY 4-6 HOURS PRN 05/30/19 [Last Taken 05/30/19] Acetaminophen [Tylenol 500Mg Tab] 1,000 mg PO Q6H PRN #20 tablet 05/31/19 [Last Taken Unknown] Azithromycin [Zithromax] 500 mg PO DAILY #5 tab 05/31/19 [Last Taken Unknown] Fluticasone Propion/Salmeterol [Advair 100-50 Diskus] 1 each IH BID #2 blst.w.dev 05/31/19 [Last Taken Unknown] Prednisone [Prednisone 20Mg] 40 mg PO DAILY #8 tab 05/31/19 [Last Taken Unknown] Discharge Plan - Discharge Instructions Additional Instructions: Follow up with Estelle eHrnandez NP 06/09/2019 at 10:20am at [facility] Family Practice as scheduled Please fill the prescriptions: Prednisone 40mg daily x 4 days Zithromax 500mg daily x 5 days Tylenol 500mg ( take 2 tabs every 6 hours as needed for pain/fever.) Advair to be used twice daily. Resume use of Proair PRN Resume all other home medications as prescribed. Quality Measures - Quality Measures Quality Measures: Documentation of Current Medications in Medical Record, Screening for High Blood Pressure and F/U Documented - Current Medications Quality Measure: Measure #130: Documentation of Current Medications Documentation of Current Medications: <Current Medications Documented/Reviewed> [[id number]] - Blood Pressure Screening Quality Measure: Screening for High Blood Pressure and Follow-Up Documented Does Patient Have Any of the Following: No Blood Pressure Classification: Pre-Hypertensive BP Reading Systolic Measurement: 148 Diastolic Measurement: 82 Screening for High Blood Pressure: < Pre-Hypertensive BP, F/U Documented > [[id number]] Pre-Hypertensive Follow-up Interventions: Follow-up with rescreen every year., Lifestyle modifications. Lifestyle Modification: Weight Reduction, Dietary Approaches to Stop Hypertension (DASH) Eating Plan - Elder Abuse Suspicion Index EASI Reference Information: Angela MCDOWELL, Trung C, Turner D, Blaine Armenta.Development and validation of a tool to assist physicians identification of elder abuse: The Elder Abuse Suspicion Index (EASI ). Journal of Elder Abuse and Neglect, 2008; 20 (3): 276-300.
[2019-05-31] MEDS ORDERED: AZITHROMYCIN 500 MG in 0.9 % SODIUM CHLORIDE 250ML 250 ML IVPB SCH (16:00)
[2019-05-31] MEDS ORDERED: CEFTRIAXONE 1GM/50ML BAG 1 GM/50 ML BAG IVPB SCH (17:00)
[2019-05-31] MEDS ORDERED: CEFTRIAXONE SODIUM 1 GM in 0.9 % SODIUM CHLORIDE 100ML 100 ML IVPB SCH (17:00)
== END 2019-05-31 14:00 | disposition home or self-care (01) ==
LOC: ER 13:57 → MEDSURG 16:19 → UNDOADMIN 16:19 → INTOOBSV 16:19
PROVIDERS: ADMIT Internal Medicine; ATTEND Internal Medicine
DX: J20.9 Acute bronchitis, unspecified (principal); R50.9 Fever, unspecified; R09.02 Hypoxemia; J45.909 Unspecified asthma, uncomplicated; F17.210 Nicotine dependence, cigarettes, uncomplicated
CPT/HCPCS: 71046; 80048; 81003; 84703; 85027; 87400; 90686; 94640; 94664; 94667; 94761; 96365; 96366; 96375; 99217; 99220; 99285; J0456; J1650; J2930; J7050; J7613